=== PATIENT | female | born 1960 ===

== ENCOUNTER 2024-09-22 13:45 | Outpatient (RCR) | payer OTHER, SELFPAY ==
[2024-09-11 11:41] VITALS: BMI 49.6
[2024-09-11 12:52] VITALS: BP 113/67; PULSE 70; TEMP 36.4
--- NOTE | 2024-09-11 15:29 | PC.ADMIT ---
Patient is a 64 year old single female who was referred to [facility] by her therapist secondary to increased depression, PTSD, and anxiety sxs. Patient struggling with many stresses including financial, describes self as a hoarder, and struggling with a gambling addiction. Patient also reports her mother during COVID and suffered greatly at that time. She stated she has a big family and were french that her her mother did not have to alone as she has a large family and all 13 members of her family were able to be there when her mother . She stated however that she was not able to be with her mother at that time as she had COVID herself. Patient is alert and oriented x4. She is calm and cooperative. She reports passive SI. Patient stated Sometimes think that it is better not to be here. Patient stated her grand kids are her protective factor. Patient also stated, My sister lives down stairs she keeps an eye on me. Patient was given a copy of her safety plan if needed. Regarding alcohol patient stated, After my mom I was drinking wine like it was going out of style. Patient stated she drank like this for 3 months. Patient reports her mom 2020. I don't drink like that anymore but I will have a beer . Patient reports currently she will drink one beer on occasion. Denied history of alcohol withdrawal. Medications updated with patient and patient's pharmacy. She reports taking medications as prescribed.
--- NOTE | 2024-09-12 23:37 | HO.PS.ADMBH ---
HPI Date of Service: 09/11/24 Chief Complaint: MDD Sources of Information: patient interviewed, chart reviewed and crisis/core team assessment reviewed HPI Narrative: Patient is a 64 yo female with history of MDD, PTSD, IVETH, gambling addiction, DM, OA, fibromyalgia who was referred by her therapist for worsening symptoms of depression, anxiety, gambling and uncomplicated alcohol use in context of passing of her mother a few years ago. I've been isolating. I'm gambling. I dont participate, I dont have friends. I usually just stay home in bed, all day... been struggling like this for the past 2-3 years . Transient passive SI without any intention or plan. Protective factors are 4 grandchildren. Depression severity 10, cognitive anxiety 10, somatic anxiety /10. Chronic pain issues exacerbated by the depression. She notes that she and her mother gambled that was our thing . She is on ZOloft was started in May and current dose 200 mg. Patient wondering if the ZOloft is too high as she has not noticed much improvement. ABilify for past 2 months, Bupropion for years. Past Psychiatric History: No prior IPLOC,respite, detox/rehab admissions PHP x1 remote SA: denies (x1 remote per assessment age 12 by rubbing alcohol) SIB: denies Aggression or antisocial behaviors: denies Gambling addiction Psychiatrist: Amparo De La Rosa MSN, PMHNP Therapist: Ronda Carlton PCP: Geoff Palma MD Previous trials: Effexor, Cymbalta, amitriptyline CURRENT MEDICATIONS: Zoloft 200 mg qd Wellbutrin XL 450 mg qam Abilify 5 mg qd Doxepin 10 mg qhs enalapril 10 mg qd gabapentin 300 mg qhs ASA 81 mg qd cetirizine 10 mg qd omeprazole 20 mg BID simvastatin 20 mg qpm Trulicity 3 mg subq weekly magnesium albuterol inhaler prn supplements [facility] Medical History (Updated 09/19/24 @ 08:07 by Caryn Cooley MD) FH: total knee replacement delivery delivered GERD (gastroesophageal reflux disease) Asthma High cholesterol Edema Fibromyalgia Arthritis Type II diabetes mellitus Narrative: Denies seizures Denies concussion/TBI Ht: 5'4 Wt: 289 ALL: penicillin Surgical History (Updated 09/11/24 @ 11:40 by Thuy Ríos RN) History of carpal tunnel surgery H/O lateral meniscus repair of left knee Hx of cholecystectomy Family History: addiction Social History: Lives alone in apartment, sister lives in downstairs apartment 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 Substance History: alcohol Diagnostics Vital Signs (24Hr): BMI result Body Mass Index 49.6 Meds/Allergies Meds Home Medications ?Medication ?Instructions ?Recorded ?Confirmed ?Type albuterol sulfate 90 mcg/actuation 2 puff inhalation Q6H PRN dyspnea 09/11/24 09/11/24 History aerosol inhaler (Ventolin HFA) aripiprazole 5 mg tablet 5 mg PO DAILY 09/11/24 09/11/24 History aspirin 81 mg tablet 81 mg PO DAILY 09/11/24 09/11/24 History biotin 5,000 mcg chewable tablet 5,000 mcg PO DAILY 09/11/24 09/11/24 History bupropion HCl 150 mg 24 hr tablet, 150 mg PO DAILY 09/11/24 09/11/24 History extended release bupropion HCl 300 mg 24 hr tablet, 300 mg PO DAILY 09/11/24 09/11/24 History extended release calcium 600 mg (as 1 tab PO DAILY 09/11/24 09/11/24 History carbonate)-vitamin D3 5 mcg (200 unit) tablet cetirizine 10 mg tablet (Zyrtec) 10 mg PO DAILY 09/11/24 09/11/24 History doxepin 10 mg capsule 10 mg PO BEDTIME 09/11/24 09/11/24 History dulaglutide 3 mg/0.5 mL 3 mg subcut QWEEK 09/11/24 09/11/24 History subcutaneous pen injector (Trulicity) enalapril maleate 10 mg tablet 10 mg PO DAILY 09/11/24 09/11/24 History fivlgqbohte-uuz-gkhmemxeh-vitC 1 cap PO DAILY 09/11/24 09/11/24 History capsule (Glucosamine Complex-MSM capsule) magnesium 200 mg tablet 400 mg PO DAILY 09/11/24 09/11/24 History metformin 500 mg tablet,extended 500 mg PO DAILY 09/11/24 09/11/24 History release 24 hr omeprazole 20 mg capsule,delayed 20 mg PO BID 09/11/24 09/11/24 History release sertraline 100 mg tablet 200 mg PO QAM 09/11/24 09/11/24 History simvastatin 20 mg tablet 20 mg PO QPM 09/11/24 09/11/24 History vitamin B complex 1 cap PO DAILY 09/11/24 09/11/24 History Allergies Allergies Allergy/AdvReac Type Severity Reaction Status Date / Time acetaminophen (From Percocet) Allergy GI SXS. Verified 09/11/24 11:40 oxycodone (From Percocet) Allergy GI SXS. Verified 09/11/24 11:40 Penicillins (PCN) Allergy Rash Verified 09/11/24 11:40 pregabalin (From Lyrica) Allergy Swelling. Verified 09/11/24 11:40 Mental Status Exam Mental Status Exam Narrative: Alert, oriented, in no acute distress. Calm, cooperative, engaged. No psychomotor agitation or neurovegetative retardation. Eye contact maintained. Mood depressed, affect constricted. Speech normal. Thought process linear, coherent. Thought content related to stressors, transient hopelessness, denies SI or HI. No paranoia or delusional content elicited. No evidence of psychosis. Insight and judgment - fair but adequate. 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 stay Substantial Risk for: inability to function and med/psych decompensation Certification I certify that partial hospital treatment is medically necessary due to the symptoms and problems resulting from the patient's mental illness and the failure to treat the patient at the partial hospital level of care would likely result in the patient requiring inpatient psychiatric care which could not be prevented at a less intensive level of care. Time Spent With Patient Time: Total time managing care of this patient today __60__ minutes.
--- NOTE | 2024-09-14 16:14 | HO.PHP ---
Clients case was open and reviewed in teams.
--- NOTE | 2024-09-22 14:02 | P.PNPSP_ITS ---
Subjective Subjective Date of Service: 09/22/24 Reason For Visit: MDD Interim History: Patient seen for follow-up, anticipating discharge at the end of program today.? It's relieving to know I am not the only one going through this stuff . Still feels she needs help with anxiety and pain, and inquires about our previous disucssion with trialing gabapentin. She is noted to have a Lyrica allergy, clarifies that she noted some puffiness in her hands and feet after use. (no hx of facial/mouth/lip swelling or anaphylaxis) Reports no acute issues or concerns. Medication compliant, medications well- tolerated. Denies any adverse effects.? Mood is stable.? Denies any hopelessness or SI. Denies thoughts of harming self or others at this time. Denies any aggressive ideation or HI. Denies any paranoia or AH or VH. Sleep, appetite, energy stable. Medication Compliance: Yes Side effects from medications: No Attending Groups: Yes Review of Systems Acute medical concerns: No Mental Status Exam Mental Status Exam Narrative: Alert, oriented, in no acute distress. Calm, cooperative. Mood stable, affect appropriate. Speech normal. Thought process linear, coherent, more goal- directed. Thought content related to stressors, future-oriented, denies any helplessness, hopelessness or SI.? No aggressive ideation or HI. No paranoia or delusional content elicited. No evidence of psychosis. Insight and judgment fair-good. 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 Refills sent to pharmacy Will defer further medication management to outpatient provider *Safety plan reviewed *Discharge diagnoses, treatment course, discharge plan have been reviewed with patient (including medication regime, medication management, potential side effects) as well as treatment rationale were also revisited *Discharge paperwork signed and given to patient, copy sent for scanning to chart Patient educated on: diagnosis and medication risk/benefits Informed Consent: understands Reason for contiued partial hosp. stay Substantial Risk for: stable for discharge Certification I certify that partial hospital treatment is medically necessary due to the symptoms and problems resulting from the patient's mental illness and the failure to treat the patient at the partial hospital level of care would likely result in the patient requiring inpatient psychiatric care which could not be prevented at a less intensive level of care. Total time managing care of this patient today __30__ minutes. Discharge Plan Discharge Attending provider: Caryn Cooley Medications: New gabapentin 300 mg capsule 300 mg PO BEDTIME Qty: 14 0RF Continued enalapril maleate 10 mg tablet 10 mg PO DAILY cetirizine [Zyrtec] 10 mg Tablet 10 mg PO DAILY Rx Instructions: OTC sertraline 100 mg tablet 200 mg PO QAM Rx Instructions: Take 2 tablet by mouth once a day as directed Take 2 tab every morning w food- doxepin 10 mg capsule 10 mg PO BEDTIME simvastatin 20 mg tablet 20 mg PO QPM omeprazole 20 mg capsule,delayed release(DR/EC) 20 mg PO BID aspirin 81 mg Tablet 81 mg PO DAILY Rx Instructions: OTC albuterol sulfate [Ventolin HFA] 90 mcg/actuation HFA aerosol inhaler 2 puff inhalation Q6H PRN (Reason: dyspnea) Rx Instructions: INHALE 2 PUFFS INTO LUNGS EVERY 6 HOURS NEEDED FOR SHORTNESS OF BREATH metformin 500 mg tablet extended release 24 hr 500 mg PO DAILY aripiprazole 5 mg tablet 5 mg PO DAILY bupropion HCl 300 mg tablet extended release 24 hr 300 mg PO DAILY Rx Instructions: Take 1 tablet by mouth once a day take w additional 150mg- total daily dose 450mg bupropion HCl 150 mg tablet extended release 24 hr 150 mg PO DAILY Rx Instructions: Take 1 tablet by mouth every morning as directed take w additional 300mg- total daily dose 450mg Trulicity 3 mg/0.5 mL pen injector 3 mg subcut QWEEK Rx Instructions: INJECT 0.5ML SUBCUTANEOUSLY EVERY WEEK DIRECTED. ROTATE INJECTION SITES calcium carbonate-vitamin D3 600 mg-5 mcg (200 unit) Tablet 1 tab PO DAILY Rx Instructions: OTC vitamin B complex Capsule 1 cap PO DAILY Rx Instructions: OTC Glucosamine Complex-MSM Capsule 1 cap PO DAILY multivitamin Tablet 1 tab PO DAILY Qty: 30 0RF Rx Instructions: OTC No Action magnesium 200 mg Tablet 400 mg PO DAILY Rx Instructions: OTC biotin 5,000 mcg Tablet,Chewable 5,000 mcg PO DAILY Rx Instructions: OTC Patient Education: Depression (ED), Depression (DC) Print Language: Bulgarian
== END 2024-09-22 23:59 | disposition home or self-care (01) ==
LOC: HO.PHPA 13:45
PROVIDERS: Visit Provider Psychiatry & Neurology Psychiatry
DX: F33.2 Major depressive disorder, recurrent severe without psychotic features (principal); F63.0 Pathological gambling; F43.10 Post-traumatic stress disorder, unspecified; F41.1 Generalized anxiety disorder; Z79.899 Other long term (current) drug therapy
CPT/HCPCS: 90791; 90853

== ENCOUNTER → 2024-09-22 13:45 | Outpatient (BNV) | payer OTHER, SELFPAY | PROVIDERS: Visit Provider Psychiatry & Neurology Psychiatry | DX: F33.2 Major depressive disorder, recurrent severe without psychotic features (principal); F63.0 Pathological gambling | CPT/HCPCS: 99499 ==